=== PATIENT | female | born 1995 | race African-American/Black ===

== ENCOUNTER 2016-11-22 06:10 | Emergency (ER) | payer BC, OTHER ==
[~2016-11-22 06:10] MED LIST: ALLEGRA-D1 TAB.SR2; ALLEGRA-D1 TAB.SR2 PO; AMOXICILLIN875 MG PO; BENZONATATE PO; FLONASE16 GM; LIDOCAINE VISCOU1 ML XX; MOTRIN600 M1 PO; MUCINEX D1 TAB.SR1; MUCINEX1200 MG/BO PO; NAPROSYN250 M1 PO; NO MEDICATIONS; PEPCID AC20 M2 PO; PERCOCET 7.5-31 EACH PO; PHENERGAN25 M1 PO; PHENERGAN25 MG PO
== END 2016-11-22 06:15 | disposition home or self-care (01) ==
LOC: SED 06:10
DX: J00 Acute nasopharyngitis [common cold] (principal)
CPT/HCPCS: 87651; 99282; 99283